=== PATIENT | female | born 2000 | race Hispanic/Latino ===

== ENCOUNTER 2025-01-13 06:35 | Emergency (ER) | payer OTHER ==
[~2025-01-13] VITALS: Ht 175.3 cm; Wt 66.0 kg
[2025-01-13] MEDS ORDERED: PROZAC20 MG PO (06:48)
[2025-01-13] MEDS ORDERED: KLONOPIN1 MG PO (06:48)
[2025-01-13] MEDS ORDERED: TRAZODONE HCL150 MG PO (06:49)
[2025-01-13] MEDS ORDERED: BUSPIRONE HCL30 MG PO (06:49)
[2025-01-13] MEDS ORDERED: HYDRALAZINE HC100 MG PO (06:50)
[2025-01-13] MEDS ORDERED: LORazepam 2 MG/ML VIAL IM ONE ×2 (07:15→07:30)
[2025-01-13] MEDS ORDERED: HALOPERIDOL LACTATE 5 MG/ML VIAL IM ONE (07:15)
[2025-01-13 08:32] LABS: BASOPHILS 0.1 % (0.1-1.2); EOSINOPHILS 0.2 % (0.7-5.8); LYMPHOCYTES 25.2 % (19.3-51.7); MCH 29.4 PG (25.6-32.2); MCHC 34.5 g/dL (32.2-35.5); MCV 85.2 fL (79.4-94.8); MONOCYTES 5.9 % (4.7-12.5); NEUTROPHILS 68.4 % (34.0-71.1); RBC 4.39 M/uL (3.93-5.22)
[2025-01-13 09:02] LABS: ALCOHOL, MEDICAL 157 ng/dL (<3); ALT (SGPT) 18 U/L (14-59); AST (SGOT) 19 U/L (15-37); GLOMERULAR FILTRATION RATE,EST 107 mL/min (>60); PROTEIN, TOTAL 8.2 g/dL (6.4-8.2); TSH, 3RD GENERATION 5.124 uIU/mL (0.358-3.740); UREA NITROGEN 10 mg/dL (7-18)
[2025-01-13 15:50] VITALS: BP 124/108
== END 2025-01-13 15:51 | disposition home or self-care (01) ==
LOC: ED 06:35
PROVIDERS: Emergency Medicine
DX: S61.512A Laceration without foreign body of left wrist, initial encounter (principal); F10.129 Alcohol abuse with intoxication, unspecified; F29 Unspecified psychosis not due to a substance or known physiological condition; W26.9XXA Contact with unspecified sharp object(s), initial encounter; Z79.899 Other long term (current) drug therapy
CPT/HCPCS: 12002; 36415; 80053; 80307; 84443; 84703; 85025; 96372; 99283-25; G0480; J1200; J1630; J2060